=== PATIENT | male | born 1960 | race Caucasian/White ===

== ENCOUNTER 2019-11-06 12:34 | Emergency (ER) | payer OTHER ==
[~2019-11-06] VITALS: Ht 172.7 cm; Wt 113.4 kg
[2019-11-06 12:50] VITALS: BP 160/88
--- NOTE | 2019-11-06 12:53 | NUR ---
PT ambulated to lobby at this time, VSS
--- NOTE | 2019-11-06 14:26 | NUR ---
WORKED WITH [email or web address] X 2 DAYS AGO--C/O REDNESS BLISTER TO LEFT SHOULDER, NECK, AND ARM AFTER EXPOSURE DENIES SOB, NO ZARATE, FULL CLEAR SPEECH
--- NOTE | 2019-11-06 14:51 | NUR ---
Dr. Dee is evaluating the patient.
--- NOTE | 2019-11-06 14:55 | NUR ---
Patient transferred to bed 11 for further care. RN re-evaluating the patient at bedside.
[2019-11-06] MEDS ORDERED: NACL 0.9% 500 ML IV SCH (15:11)
[2019-11-06] MEDS ORDERED: MORPHINE SULFATE 4 MG/ML SYR IVP ONE (15:15)
[2019-11-06] MEDS ORDERED: PIPERACILLIN/TAZOBACTAM 3.375 GM in DEXTROSE 5% 50 ML IV ONE (15:15)
[2019-11-06] MEDS ORDERED: VANCOMYCIN 1,000 MG in DEXTROSE 5% 250 ML IV ONE (15:15)
[2019-11-06] MEDS ORDERED: CLINDAMYCIN 900 MG in DEXTROSE 5% 100 ML IV ONE (15:15)
--- NOTE | 2019-11-06 16:00 | NUR ---
PT UNABLE TO PROVIDE URINE AT THIS TIME
[2019-11-06] MEDS ORDERED: CLINDAMYCIN 900 MG/6 ML VIAL IV ONE (16:13)
[2019-11-06 16:23] LABS: BASOPHILS % (AUTO) 0.9 % (0.0-2.0); EOSINOPHILS # (AUTO) 0.2 K/uL (0-0.4); EOSINOPHILS % (AUTO) 4.6 % (0.0-4.0); HEMATOCRIT 43.6 % (36-52); HEMOGLOBIN 14.1 g/dL (12.0-18.0); LYMPHOCYTES # (AUTO) 0.8 K/uL (2.0-11.5); LYMPHOCYTES % (AUTO) 15.2 % (20.5-51.1); MEAN CORPUSCULAR HEMOGLOBIN 30 pg (27-31); MEAN CORPUSCULAR HGB CONC 32 g/dL (33-37); MEAN CORPUSCULAR VOLUME 93.8 fL (80-94); MONOCYTES # (AUTO) 0.9 K/uL (0.8-1.0); MONOCYTES % (AUTO) 16.2 % (1.7-9.3); NEUTROPHILS # (AUTO) 3.3 K/uL (1.8-7.7); NEUTROPHILS % (AUTO) 63.1 % (42.2-75.2); PLATELET COUNT (AUTO) 212 K/uL (140-450); RED BLOOD CELL COUNT(AUTO) 4.65 MIL/uL (4.20-6.10); RED CELL DISTRIBUTION WIDTH 14.6 % (11.6-13.7); WHITE BLOOD COUNT (AUTO) 5.3 K/uL (4.8-10.8)
--- NOTE | 2019-11-06 16:27 | NUR ---
PT RESTING IN BED, STATED MORPHINE HELPED PAIN, LEVEL 5/10 AT THIS TIME
[2019-11-06 16:32] LABS: ANION GAP 15.3 (8-16); CARBON DIOXIDE 24.7 mmol/L (21-32); CREATININE 1.7 mg/dL (0.7-1.3)
--- NOTE | 2019-11-06 16:33 | NUR ---
Patient taken to CT scan via wheelchair by marlene, accompanied by RN.
[2019-11-06 16:39] LABS: ALBUMIN 3.8 g/dL (3.4-5.0); TOTAL BILIRUBIN 0.4 mg/dL (0.0-1.0)
[2019-11-06] MEDS ORDERED: VANCOMYCIN 1,000 MG VIAL ONE (17:10)
[2019-11-06 17:45] LABS: APPEARANCE,URINE CLEAR (CLEAR); BILIRUBIN,URINE NEGATIVE (NEGATIVE); BLOOD, URINE NEGATIVE (NEGATIVE); COLOR,URINE YELLOW (YELLOW); LEUKOCYTE ESTERASE ,URINE NEGATIVE (NEGATIVE); NITRITE, URINE NEGATIVE (NEGATIVE); PH,URINE 5.5 (5.0-9.0); UGLUCOSE NEGATIVE (NEGATIVE)
--- NOTE | 2019-11-06 18:18 | NUR ---
PT REFUSING TO BE TRANSFERRED TO [facility], INFORMED DR. CAVANAUGH & SHE STATED THAT HE WILL HAVE TO SIGN OUT AMA THEN. CHARGE NURSE KENNEDY IS TALKING WITH PATIENT AT BEDSIDE.
--- NOTE | 2019-11-06 19:15 | NUR ---
INFORMED PT THAT HIS INSURANCE HAS APPROVED AUTHORIZATION TO BE TRANSFERRED TO [facility]. PT STATES "I JUST WANT MY DISCHARGE PAPERS. I DON'T WANT TO BE TRANSFERRED THERE. I WANT A SECOND OPINION FROM ANOTHER DOCTOR". PT REFUSING TRANSFER. WILL STAY FOR 2ND DOSE OF ABX. VICTORINA MADE AWARE.
--- NOTE | 2019-11-06 19:20 | NUR ---
REPORT RECEIVED FROM YVETTE JON. TRANSFER OF CARE AT THIS TIME.
[2019-11-06] MEDS ORDERED: PIPERACILLIN/TAZOBACTAM 3.375 GM VIAL IV ONE (19:27)
[2019-11-06 20:00] VITALS: BP 136/88
--- NOTE | 2019-11-06 20:05 | NUR ---
Patient does not wish to proceed with medical care recommended by Dr. Harden. Patient given information related to possible complications, up to and including , which could occur as a result of leaving hospital at this time. Patient verbalizes understanding of risks involved leaving against medical advice. Patient has signed AMA form.
--- NOTE | 2019-11-06 20:08 | NUR ---
ABX COMPLETE. NADR. VSS. FAMILY AT BEDSIDE. IV REMOVED. PT LEAVING AMA.
== END 2019-11-06 20:08 | disposition left against medical advice (07) ==
LOC: MED 12:34
DX: L03.811 Cellulitis of head [any part, except face] (principal); L03.221 Cellulitis of neck; L03.313 Cellulitis of chest wall; I10 Essential (primary) hypertension
CPT/HCPCS: 36415; 70490; 80053; 81003; 83605; 83690; 85025; 87040; 87086; 96365; 96366; 96367; 96375; 99284; J2270; J2543; J3370; J3490; J7030